=== PATIENT | male | born 1950 | race Caucasian/White ===

== ENCOUNTER → 2024-01-31 07:43 | Outpatient (REF) | payer OTHER, SELFPAY | LOC: RAD 07:43 | PROVIDERS: ATTENDING PHYSICIAN Family Medicine | DX: K92.1 Melena (principal); Z79.01 Long term (current) use of anticoagulants; K59.09 Other constipation; R10.31 Right lower quadrant pain | CPT/HCPCS: 74177; Q9967 ==

== ENCOUNTER → 2024-03-11 10:13 | Outpatient (REF) | payer OTHER, SELFPAY | LOC: HWRAD 10:13 | PROVIDERS: ATTENDING PHYSICIAN Family Medicine | DX: N28.1 Cyst of kidney, acquired (principal) | CPT/HCPCS: 76775 ==

== ENCOUNTER → 2024-03-27 06:31 | Day surgery (SDC) | payer OTHER, SELFPAY | LOC: GI 06:31 | PROVIDERS: ATTENDING PHYSICIAN Internal Medicine; FAMILY PHYSICIAN Family Medicine | DX: D12.2 Benign neoplasm of ascending colon (principal); D12.3 Benign neoplasm of transverse colon; K64.8 Other hemorrhoids; K92.1 Melena | CPT/HCPCS: 45385; 45380; 88305 ==

== ENCOUNTER → 2024-04-10 06:38 | Outpatient (REF) | payer OTHER, SELFPAY | LOC: HWRAD 06:38 | PROVIDERS: ATTENDING PHYSICIAN Family Medicine | DX: R10.11 Right upper quadrant pain (principal) | CPT/HCPCS: 76705 ==

== ENCOUNTER → 2024-05-20 08:24 | Outpatient (REF) | payer OTHER, SELFPAY | LOC: MRI 08:24 | PROVIDERS: ATTENDING PHYSICIAN Family Medicine | DX: R93.5 Abnormal findings on diagnostic imaging of other abdominal regions, including retroperitoneum (principal) | CPT/HCPCS: 74183; A9575 ==

== ENCOUNTER → 2024-06-14 07:07 | Outpatient (REF) | payer OTHER, SELFPAY | LOC: RAD 07:07 | PROVIDERS: ATTENDING PHYSICIAN Internal Medicine Critical Care Medicine; FAMILY PHYSICIAN Family Medicine | DX: R06.09 Other forms of dyspnea (principal) | CPT/HCPCS: 71046 ==

== ENCOUNTER → 2024-06-24 07:34 | Outpatient (REF) | payer OTHER, SELFPAY | LOC: RAD 07:34 | PROVIDERS: ATTENDING PHYSICIAN Surgery; FAMILY PHYSICIAN Family Medicine | DX: R10.11 Right upper quadrant pain (principal); K80.20 Calculus of gallbladder without cholecystitis without obstruction; K21.9 Gastro-esophageal reflux disease without esophagitis | CPT/HCPCS: 78226; A9537 ==

== ENCOUNTER → 2024-07-03 15:25 | Outpatient (REF) | payer OTHER, SELFPAY | LOC: RCS 15:25 | PROVIDERS: ATTENDING PHYSICIAN Internal Medicine Critical Care Medicine; FAMILY PHYSICIAN Family Medicine; REFERRING PHYSICIAN Internal Medicine Cardiovascular Disease | DX: R06.09 Other forms of dyspnea (principal) | CPT/HCPCS: 93306 ==

== ENCOUNTER → 2024-08-26 07:08 | Outpatient (REF) | payer OTHER, SELFPAY | LOC: RAD 07:08 | PROVIDERS: ATTENDING PHYSICIAN Family Medicine | DX: R22.1 Localized swelling, mass and lump, neck (principal) | CPT/HCPCS: 76536 ==

== ENCOUNTER 2024-08-29 05:51 | Day surgery (SDC) | payer OTHER, SELFPAY ==
[2024-08-26 07:56] LABS: % Basophils 0.8 % (0-2); % Eosinophils 1.5 % (0-6); % Immature Granulocytes 0.3 % (0-0.5); % Lymphocytes 27.4 % (20.5-51.1); % Monocytes 8.4 % (1.7-9.3); % Neutrophils 61.6 % (42.2-75.2); Absolute Basophils 0.1 10^3/uL (0-0.2); Absolute Eosinophils 0.1 10^3/uL (0-0.7); Absolute Lymphocytes 1.8 10^3/uL (1.2-3.4); Absolute Monocytes 0.6 10^3/uL (0.1-0.6); Absolute Neutrophils 4.1 10^3/uL (1.4-6.5); Hematocrit 39.9 % (39.0-52.0); Hemoglobin 13.5 g/dL (13.0-18.0); Mean Corp Hgb Conc. 33.8 g/dL (33.0-37.0); Mean Corpuscular Hgb 30.8 pg (27.0-31.0); Mean Corpuscular Volume 90.9 fL (80.0-94.0); Mean Platelet Volume 9.2 fL (7.4-10.4); Nucleated Red Blood Cells % 0 % (-); Platelet Count 231 10^3/uL (130-400); Red Blood Cell Count 4.39 10^6/uL (4.70-6.10); Red Cell Dist. Width 12.7 % (11.5-14.5); White Blood Cell Count 6.6 10^3/uL (4.8-10.8)
[2024-08-26 08:26] LABS: ALT (SGPT) 15 U/L (0-50); AST (SGOT) 24 U/L (17-59); Albumin 4.2 g/dl (3.5-5.0); Alkaline Phosphatase 63 U/L (38-126); Blood Urea Nitrogen 21 mg/dl (9-20); Calcium 9.4 mg/dl (8.4-10.2); Carbon Dioxide 27 mmol/L (22-30); Chloride 105 mmol/L (98-107); Glucose 97 mg/dl (70-99); Sodium 143 mmol/L (135-145); Total Bilirubin 1.6 mg/dl (0.2-1.3); Total Protein 6.8 g/dl (6.3-8.2); eGFR > 60.00
[2024-08-29] VITALS (11 sets, daily range): BP systolic 124–145; BP diastolic 69–88; BMI 23.5
--- NOTE | 2024-08-29 07:28 | HP.FOC2 ---
Focused History & Physical
Chief Complaint
HPI:
Chief Complaint: Chronic calculus cholecystitis
HPI / Indication for Planned Procedure: Patient is a 74-year-old male recently seen in outpatient surgical evaluation secondary to history of gallstones and right-sided abdominal pain.
Patient reports mild aching discomfort in the right side of the abdomen. There is a constant discomfort that is dull and not radiating. Uncertain of alleviating or exacerbating factors. CT imaging unremarkable. Ultrasound with large gallstone
measuring up to 3 cm but no wall thickening. MRI similarly confirms large gallstone in the region of the gallbladder neck measuring up to 3.4 cm without biliary ductal dilation. We subsequently obtained a CCK HIDA showing delayed opacification of
the gallbladder likely indicative of chronic calculus cholecystitis. After discussions with the patient he presents today for cholecystectomy.
Relevant Past Medical History: Other (P A-fib, hypothyroidism, BPH, insomnia, GERD)
Relevant Social History: Negative
Relevant Family History: Negative
Relevant Past Surgical History: Positive for (Left knee replacement, left hand surgeries, right knee arthroscopic surgery, back surgery, appendectomy, tonsils, left foot fracture)
Review of Systems
Review of Pertinent Systems: All Systems Negative
Medication
See Medication form for detailed medications: Yes
Medication List (including Herbals & OTC):
levothyroxine 88 mcg tablet 100 mcg PO DAILY 02/25/13
tamsulosin 0.4 mg capsule 0.4 mg PO DAILY 03/19/13
apixaban 5 mg tablet (Eliquis) 5 mg PO BID 10/09/18
omeprazole 40 mg capsule,delayed release 40 mg PO DAILY 05/04/20
trazodone 150 mg tablet 150 mg PO HS 05/04/20
multivitamin 1 tab PO DAILY 08/26/24
Medications Reviewed: Yes
Allergies and Reactions
Patient has Allergies: Yes
Noted Allergies and Reactions:
Allergy/AdvReac Type Severity Reaction Status Date / Time
No Known Drug Allergies Allergy NA Verified 08/26/24 15:08
environmental allergies Allergy sneezing Uncoded 08/26/24 15:08
Pertinent Physical Exam
All Other Systems: Negative
Head/Neck: Normal
Lungs: Normal
Heart: Normal
Abdomen: Normal
Extremities: Normal
Neurological: Normal
Diagnosis / Assessment
74-year-old male presenting for scheduled cholecystectomy for management of chronic calculus cholecystitis
Plan / Procedure
Laparoscopic cholecystectomy
Anesthesia/Sedation to be done by Anesthesia Provider: Yes
[2024-08-29] MEDS: NORMOSOL-R/PLASMALYTE-A 1000 IV (09:02)
[2024-08-29] MEDS: TYLENOL 1000 MG PO (09:03)
--- NOTE | 2024-08-29 09:47 | W.SUR.PREOP ---
Pre-Operative Surgical Note
-
I have examined this patient prior to the performance of the scheduled procedure.
The patient's condition is unchanged from the time of the current History and
Physical and the patient is able to undergo the scheduled procedure.
--- NOTE | 2024-08-29 11:40 | W.IMMPOSTOP ---
Addendum entered and electronically signed by Chavo Burr MD 08/29/24 14:08:
#[id number]
Original Note:
Surgical Immed Post Op Note
-
Primary Surgeon: Aminah
Assisting Surgeon: Sandy Herring PA-C
Pre-op Diagnosis: Chronic calculus cholecystitis
Post-op Diagnosis: Chronic calculus cholecystitis
Procedure Performed: Laparoscopic cholecystectomy
Anesthesia Type: GETA +0.25% Marcaine
Specimen / Cultures: Gallbladder
Estimated Blood Loss: 12 mL
Complications: None immediate
Operative Findings: Gallbladder with large stone and few filmy adhesions. Cystic duct identified with critical view of safety and controlled with hemoclips. Main cystic artery and posterior branch also isolated and controlled with hemoclips. Some
modest oozing of peritoneal lining and tissues possibly reflective of Eliquis use. Additional clips utilized along peritoneal surfaces and with small vessels. Britt powder placed as well in region of cystic triangle. Gallbladder extracted at
epigastric port site.
The assistance of Sandy Herring PA-C was required due to the complexity of the procedure. During the procedure Sandy Rose PA-C assisted with gallbladder retraction, resection, and closure of the surgical sites.
Patient's daughter updated postoperatively via phone call
[2024-08-29] MEDS: DILAUDID 0.25 MG IV (12:36)
== END 2024-08-29 13:57 | disposition home or self-care (01) ==
LOC: SDS 05:51
PROVIDERS: ATTENDING PHYSICIAN Surgery; FAMILY PHYSICIAN Family Medicine
DX: K80.10 Calculus of gallbladder with chronic cholecystitis without obstruction (principal)
CPT/HCPCS: 47562; 88304; 80053; 85025

== ENCOUNTER → 2024-11-25 13:27 | Outpatient (REF) | payer OTHER, SELFPAY | LOC: PAVMRI 13:27 | PROVIDERS: ATTENDING PHYSICIAN Internal Medicine; FAMILY PHYSICIAN Family Medicine | DX: K86.2 Cyst of pancreas (principal) | CPT/HCPCS: 74183; A9575 ==

== ENCOUNTER → 2025-06-11 07:42 | Outpatient (REF) | payer OTHER, SELFPAY | LOC: RCS 07:42 | PROVIDERS: ATTENDING PHYSICIAN Internal Medicine Cardiovascular Disease; FAMILY PHYSICIAN Family Medicine | DX: R06.09 Other forms of dyspnea (principal); I51.7 Cardiomegaly | CPT/HCPCS: 93306 ==

== ENCOUNTER → 2025-06-12 10:33 | Outpatient (REF) | payer OTHER, SELFPAY | LOC: RCS 10:33 | PROVIDERS: ATTENDING PHYSICIAN Internal Medicine Cardiovascular Disease; FAMILY PHYSICIAN Family Medicine | DX: R06.09 Other forms of dyspnea (principal) | CPT/HCPCS: 78452; 93017; A9500; J2785 ==

== ENCOUNTER → 2025-06-18 19:02 | Outpatient (REF) | payer OTHER, SELFPAY | LOC: MRI 3T 19:02 | PROVIDERS: ATTENDING PHYSICIAN Internal Medicine; FAMILY PHYSICIAN Family Medicine | DX: K86.2 Cyst of pancreas (principal) | CPT/HCPCS: 74183; A9575 ==

== ENCOUNTER → 2025-06-30 07:45 | Outpatient (REF) | payer OTHER, SELFPAY | LOC: RAD 07:45 | PROVIDERS: ATTENDING PHYSICIAN Internal Medicine Cardiovascular Disease; FAMILY PHYSICIAN Family Medicine | DX: R06.02 Shortness of breath (principal) | CPT/HCPCS: 71046 ==

== ENCOUNTER → 2025-10-23 07:08 | Outpatient (REF) | payer OTHER, SELFPAY | LOC: RAD 07:08 | PROVIDERS: ATTENDING PHYSICIAN Family Medicine | DX: M54.2 Cervicalgia (principal) | CPT/HCPCS: 72052 ==